=== PATIENT | female | born 1950 | race Two or more races ===

== ENCOUNTER 2017-03-11 09:12 | Day surgery (SDC) | payer MEDICARE, OTHER ==
[~2017-03-11 09:12] MED LIST: ACTIVELLA TABLE1 TAB; ACTIVELLA TABLE1 TAB PO; ACTOS15 MG PO; ADVAIR 25028 BLISTE1 PO; ALBUTEROL17 GM INH; ALDACTONE100 MG; ALDACTONE100 MG PO; ALDACTONE50 M1 PO; AMOXICILLIN500 M PO; ASTHMACORT INHALER; ATROVENT; ATROVENT1 PUFF INH; AUGMENTIN 875-1 EAC2 PO; AUGMENTIN875 MG GT; AUGMENTIN875 MG PO; AZMACORT20 G1 IH; B-121000 MC2 PO; BACLOFEN10 M1 PO; BACTRIM DS TAB1 EAC2 PO; BACTRIM DS TABL1 TAB; BACTRIM DS1 TA1 PO; BYETTA10 MCG/0.0; CLEOCIN IV; CLEOCIN150 MG/CAP PO; CLINDAMYCIN HC300 MG PO; COLACE100 M1 PO; COLACE100 MG PO; COMBIVENT1 PUFF INH; CRESTOR10 MG; DARVOCET-N 1001 TAB PO; DULCOLAX10 MG/SUPP RC; EQL FISH OIL 1,1 CA1 PO; FENTANYL1 EAC1 TD; FEOSOL325 M1 PO; FERROUS SULFAT325 M1 PO; FORTAMET500 MG PO; GLIPIZIDE XL10 MG; GLIPIZIDE XL2.5 MG PO; GLIPIZIDE XL5 MG PO; GLIPIZIDE10 MG PO; GLIPIZIDE5 MG PO; GLUCOPHAGE500 M3 PO; GLUCOPHAGE500 MG PO; GLUCOTROL XL2.5 M1 PO; H PO; HYDROCHLOROTHIA25 M1 PO; HYDROCHLOROTHIA50 MG; HYDROCHLOROTHIA50 MG PO; HYDROCODON-ACE1 EA15 PO; HYDROCODON-ACE1 EA17 PO; JANUVIA100 M1 PO; JANUVIA100 MG PO; KEFLEX500 M1 PO; KEFLEX500 MG; KEFLEX500 MG PO; KLONOPIN0.25 MG/TA PO; LASIX20 M1 PO; LEG CRAMP PO; LEVAQUIN750 MG PO; LEXAPRO20 M2 PO; LIDODERM1 EACH TP; LIPITOR10 MG PO; LORTAB 5-325 M1 EAC1 PO; LOVENOX40 MG/0.4 SQ; LYRICA150 MG PO; LYRICA150 MG/CAP PO; LYRICA50 MG/CAP PO; METHIMAZOLE5 MG PO; METOLAZONE2.5 MG PO; METOLAZONE5 M1 PO; MOBIC15 MG PO; MOBIC7.5 M2 PO; MYCOSTATIN30 GM TP; NEURONTIN300 M1 PO; NEURONTIN300 MG PO; NORCO 10-325 T1 EACH PO; NORCO 5/325 TAB1 TAB PO; NORCO 5/3251 TAB PO; NORFLEX100 MG PO; NORFLEX100 MG/TA1 PO; NORVASC5 M2 PO; PHENERGAN25 M4 RC; PREVACID30 MG; PRILOSEC20 M1 PO; PRISTIQ50 MG PO; PROPYLTHIOURACI50 MG PO; PROTONIX40 M2 PO; PROTONIX40 MG PO; PROVENTIL HFA6.7 G1 INH; PROVENTIL HFA6.7 G1 PO; PROVENTIL17 GM IH; PROZAC20 MG; PROZAC40 MG; SPIRIVA RESPIMAT4 G1 INH; STOP THE FOLLOWING:; STRATTERA40 MG; SULFAMYLON453.6 GM TP; TRAMADOL HCL50 MG; TRICOR145 M1 PO; TRICOR145 M2 PO; TRICOR160 MG; TRICOR200 MG; TRILIPIX135 MG PO; TYLENOL325 MG PO; VICODIN 5/500 T1 TAB PO; VITAMIN B121000 MCG PO; VITAMIN B12500 MCG PO; VITAMIN D-1000 UNIT/ PO; VITAMIN D32000 UNI3 PO; VITAMIN D35000 UNI1 PO; VOLTAREN100 G1 TP; VYETTA; VYVANSE40 M1 PO; VYVANSE70 M1 PO; VYVANSE70 MG PO; ZEBETA5 MG PO; ZETIA10 MG; ZOLOFT100 MG; [UNRECOGNIZED DRUG - OTHER] PO
[2017-03-11 10:22] LABS: BASO % 0.9 % (0-2); BASO ABSOLUTE COUNT 0.1 tho/cmm (0.0-0.2); EOSINOPHIL ABSOLUTE COUNT 0.4 tho/cmm (0.0-0.7); HCT-HEMATOCRIT 36.9 % (34.0-49.0); HGB-HEMOGLOBIN 12.2 gm/dl (12.0-15.5); IMMATURE GRANULOCYTES ABSOLUTE 0.02 tho/cmm (0-0.03); IMMATURE GRANULOCYTES PERCENT 0.3 % (0-0.3); LYMPH % 22.8 % (20-45); LYMPH ABSOLUTE COUNT 1.6 tho/cmm (0.8-4.5); MCH (MEAN CORPUSCULAR HGB) 28.2 pg (28.0-32.0); MCHC MEAN CORPUSCULAR HGB CONC 33.1 % (32.0-36.0); MCV (MEAN CELL VOLUME) 85.4 fl (82.0-96.0); MEAN PLATELET VOLUME 9.9 cmc (9.4-12.4); MONOCYTE ABSOLUTE COUNT 0.7 tho/cmm (0.0-1.2); NEUTROPHIL ABSOLUTE COUNT 4.1 tho/cmm (1.6-8.0); NEUTROPHIL-AUTOMATED 4.1 tho/cmm (1.6-8.0); PLATELET COUNT 451 tho/cmm (150-450); RED BLOOD COUNT 4.32 mil/cmm (4.00-5.20); RED CELL DISTRIBUTION WIDTH 13.1 % (12.4-16.4); WHITE BLOOD COUNT 6.8 tho/cmm (4.0-10.0)
[2017-03-11 10:38] LABS: ANION GAP 14 mmol/L (0-20); BLOOD UREA NITROGEN 59 mg/dl (6-24); CALCIUM 9.5 mg/dl (8.5-10.5); CARBON DIOXIDE-VENOUS 28 mmol/L (22-32); CHLORIDE 101 mmol/l (96-110); CREATININE 2.18 mg/dl (0.50-1.10); GLUCOSE 117 mg/dL (70-110); POTASSIUM 3.8 mmol/L (3.7-5.1); SODIUM 139 mmol/L (135-145); eGFR VALUE FOR BLACK 26 mL/Min
[2017-03-12] MEDS ORDERED: HYDROCODON-ACE1 EA16 PO (09:32)
== END 2017-03-12 16:50 | disposition home health service (06) ==
LOC: SRG 09:12 → SHSB 09:15 → ORW 11:26 → SHSB 12:20 → CAR1 16:05
PROVIDERS: Anesthesiology
PROC: 0Y6Y0Z0 Detachment at Left 5th Toe, Complete, Open Approach (ICD-10-PCS; principal; 2017-03-11)
DX: E11.621 Type 2 diabetes mellitus with foot ulcer (principal); L97.529 Non-pressure chronic ulcer of other part of left foot with unspecified severity; I10 Essential (primary) hypertension; M06.9 Rheumatoid arthritis, unspecified; F32.9 Major depressive disorder, single episode, unspecified; F41.9 Anxiety disorder, unspecified; Z88.8 Allergy status to other drugs, medicaments and biological substances; Z88.1 Allergy status to other antibiotic agents; Z79.899 Other long term (current) drug therapy; Z88.6 Allergy status to analgesic agent
CPT/HCPCS: G8978-GP-CK; G8979-GP-CK; G8980-GP-CK; J0690; J2250; J2270